=== PATIENT | male | born 1960 | race Caucasian/White ===

== ENCOUNTER 2017-02-24 11:14 | Emergency (ER) | payer OTHER ==
[2017-02-24 11:20] VITALS: RESP 18
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
[2017-02-24 13:58] VITALS: BP 120/80; PULSE 58; TEMP 98.1
[2017-02-24 14:42] VITALS: O2SAT 98
== END 2017-02-24 13:58 | disposition home or self-care (01) ==
LOC: C.ER 11:14
DX: S16.1XXA Strain of muscle, fascia and tendon at neck level, initial encounter (principal); V49.9XXA Car occupant (driver) (passenger) injured in unspecified traffic accident, initial encounter